=== PATIENT | male | born 1980 | race Caucasian/White ===

== ENCOUNTER 2016-04-26 19:09 | Emergency (ER) | payer OTHER ==
--- NOTE | 2016-04-26 22:30 | CT ---
Name: STARR ASHER Exam: CT neck and chest Comparison: Soft tissue neck plain films dated 04/26/2016 Clinical history: Possible chicken bone in the esophagus PROCEDURE: Helical CT using multidetector technique was applied from the [place] of [place] through the lung bases. No contrast was given. Findings: CT soft tissue neck (noncontrast): Visualized intracranial structures are normal orbits are intact. Paranasal sinuses and mastoid air cells are clear. Parotid glands, submandibular glands and thyroid glands are normal. Subcentimeter early reactive lymph nodes are noted within the neck in a fairly symmetric fashion. There is straightening of the normal cervical lordosis with multilevel degenerative disease. Trachea is midline. There is a small amount of adenoidal hypertrophy. Lingular tonsils are mildly prominent as well. The epiglottis is normal size. There is no hypopharyngeal dilation. The cervical esophagus is normal. A foreign body is not identified. There is no dissecting air or abscess. CT chest (noncontrast): Heart is not enlarged. There is no pericardial effusion. Aorta is normal caliber and there is a normal 3 great vessel arrangement. There is no suspicious axillary, mediastinal or hilar adenopathy. The esophagus is normal caliber. There is no distention or air-fluid level. Esophageal foreign body is not present. There is no air adjacent to the esophagus. Large airways are clear. Lungs are clear. Structures below the diaphragm included on this exam are within normal limits. 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 Impression: 1. No current evidence for foreign body within the esophagus. Also, there is no esophageal dilation or evidence for esophageal perforation. If further evaluation is clinically warranted, direct visualization or barium swallow could be performed. 2. Mild prominence of the adenoids and lingual tonsils. 3. Mild degenerative disease of the visualized spine. Note: The above report was uploaded to [facility]'s electronic medical records system at 2226 hours.
--- NOTE | 2016-04-27 07:54 | RAD ---
EXAMINATION : SOFT TISSUE NECK HISTORY: Feeling of foreign body within the throat. COMPARISONS: Prior cervical spine radiographs dated 07/06/2006. FINDINGS: The paravertebral soft tissues are unremarkable. Very similar to the prior exam. The osseous structures are intact. There is no prevertebral soft tissue swelling. No radiopaque foreign body is seen. IMPRESSION: Negative two-view soft tissue neck.
== END 2016-04-26 23:26 | disposition home or self-care (01) ==
LOC: ED 19:09
DX: R07.0 Pain in throat (principal); Z87.891 Personal history of nicotine dependence